=== PATIENT | male | born 2000 | race Caucasian/White ===

== ENCOUNTER 2018-01-10 07:55 | Day surgery (SDC) | payer MEDICAID ==
[~2018-01-10] VITALS: Ht 177.8 cm; Wt 68.0 kg
[2018-01-10] MEDS ORDERED: MIDAZOLAM 2 MG/2 ML VIAL ONE (09:47)
[2018-01-10] MEDS ORDERED: fentaNYL 0.05 MG/ML VIAL ONE (09:47)
[2018-01-10] MEDS ORDERED: MIDAZOLAM 2 MG/2 ML VIAL IVP ONE (10:30)
== END 2018-01-10 11:10 | disposition home or self-care (01) ==
LOC: MDS 07:55 → MMU 07:56 → MDS 11:10
PROVIDERS: ATTEND Internal Medicine Gastroenterology
DX: K64.8 Other hemorrhoids (principal); Z98.890 Other specified postprocedural states; Z79.899 Other long term (current) drug therapy; Z68.21 Body mass index [BMI] 21.0-21.9, adult
CPT/HCPCS: 45378; J2250; J3010; J7030